=== PATIENT | male | born 1985 | race Caucasian/White ===

== ENCOUNTER 2016-08-10 19:33 | Emergency (ER) | payer BC ==
[~2016-08-10 19:33] MED LIST: BENADRYL IV; NO MEDICATIONS; ROBAXIN500 MG PO; VOLTAREN50 MG PO
== END 2016-08-10 20:06 | disposition home or self-care (01) ==
LOC: CFTX 19:33
DX: H10.33 Unspecified acute conjunctivitis, bilateral (principal); Z79.899 Other long term (current) drug therapy
CPT/HCPCS: 99283